=== PATIENT | female | born 1950 | race Caucasian/White ===

== ENCOUNTER 2020-01-22 08:46 | Inpatient (IN) ==
[2020-01-22 10:17] LABS: Bilirubin,Urine Negative (Negative); Blood, Urine Negative (Negative); Glucose,Urine (UA) Negative (Negative); Hyaline Casts,Urine 3 /LPF (0-3); Ketones,Urine 20 mg/dL (Negative); Mucus,Urine Many /LPF (Occasional); Nitrite,Urine Negative (Negative); Protein,Urine 30 MG/DL; RBC,Urine 2 /HPF (0-4); Squamous Epithelial Cell,Urine Occasional /HPF (0-10); Urine Appearance CLEAR (Clear); Urine Color Yellow (Yellow); Urine Urobilinogen < 2.0 EU/DL (0.2-1.0); WBC,Urine 28 /HPF (0-6)
[2020-01-22 10:56] LABS: Basophils # 0.1 10*3/uL (0.0-0.2); Basophils % 0.5 % (0.0-0.8); Eosinophils # 0.2 10*3/uL (0.0-0.87); Eosinophils % 1.7 % (0.00-10.9); Hematocrit 35.8 VOL% (35.7-47.0); Hemoglobin 12.3 GM/DL (12.0-16.0); Immature Granulocytes % 0.4 %; Immature Granulocytes Absolute 0.04 #; Lymphocytes # 1.4 10*3/uL (1.4-4.0); Lymphocytes % 14.1 % (21.3-54.2); Mean Corpuscular HGB Conc 34.4 GM/DL (32-36); Mean Corpuscular Volume 89.5 FL (87-102); Mean Platelet Volume 9.6 FL (9.6-12.0); Monocytes % 9.1 % (1.7-12.7); Neutrophils % 74.2 % (38.7-73.9); Platelet Count 269 T/CUMM (130-400); Red Cell Distribution Width 12.7 % (9.3-17.3); White Blood Count 9.8 T/CUMM (4-12)
[2020-01-22 11:20] LABS: Albumin 3.6 G/DL (3.4-5.0); Bilirubin,Total 0.7 MG/DL (0.2-1.0); Calcium 9.4 MG/DL (8.5-10.1); Osmolality,Calculated 270.4 MOS/KG (273-304)
[2020-01-22] MEDS ORDERED: cefTRIAXone 1,000 MG in SODIUM CHLORIDE 0.9% 100 ML IV STA (12:13)
[2020-01-22] MEDS ORDERED: cefTRIAXone 1,000 MG VIAL ONE (12:16)
[2020-01-22] MEDS ORDERED: ACETAMINOPHEN 325 MG TABLET PO PRN (13:26)
[2020-01-22] MEDS ORDERED: DEXTROSE 50% 25 GM/50 ML VIAL IV PRN (13:26)
[2020-01-22] MEDS ORDERED: GLUCAGON 1 MG VIAL IM PRN (13:26)
[2020-01-22] MEDS: ONDANSETRON 4 MG/2 ML VIAL IV PRN (15:30)
[2020-01-22] MEDS: SODIUM CHLORIDE 0.9% 1,000 ML IV SCH (15:47)
[2020-01-22] MEDS: MORPHINE 4 MG/1 ML VIAL IV PRN ×2 (19:09→23:21)
[2020-01-23] MEDS: MORPHINE 4 MG/1 ML VIAL IV PRN (03:24)
[2020-01-23 06:00] LABS: Basophils # 0.1 10*3/uL (0.0-0.2); Basophils % 0.5 % (0.0-0.8); Eosinophils # 0.3 10*3/uL (0.0-0.87); Eosinophils % 3.3 % (0.00-10.9); Hematocrit 33.8 VOL% (35.7-47.0); Immature Granulocytes % 0.5 %; Immature Granulocytes Absolute 0.05 #; Lymphocytes # 1.2 10*3/uL (1.4-4.0); Lymphocytes % 13.2 % (21.3-54.2); Mean Corpuscular HGB Conc 35.5 GM/DL (32-36); Mean Corpuscular Volume 89.2 FL (87-102); Mean Platelet Volume 9.7 FL (9.6-12.0); Monocytes % 8.5 % (1.7-12.7); Platelet Count 266 T/CUMM (130-400); Red Blood Count 3.79 MC/CUMM (3.8-5.5); Red Cell Distribution Width 12.7 % (9.3-17.3); White Blood Count 9.3 T/CUMM (4-12)
[2020-01-23 06:05] LABS: INR 1.1; PT Patient Result 11.4 SECS (9.8-11.9); Partial Thromboplastin Time 26.8 SECS (23.9-33.8)
[2020-01-23 06:29] LABS: Calcium 9.1 MG/DL (8.5-10.1); Osmolality,Calculated 269.2 MOS/KG (273-304)
[2020-01-23] MEDS ORDERED: MAGNESIUM SULF RIDER 4 GM in PREMIX 1 EACH IV PRN (07:19)
[2020-01-23] MEDS ORDERED: MAGNESIUM SULF RIDER 2 GM in PREMIX 1 EACH IV PRN (07:19)
[2020-01-23] MEDS: BISACODYL 5 MG TABLET PO SCH (10:43)
[2020-01-23] MEDS: SODIUM CHLORIDE 0.9% 1,000 ML IV SCH ×2 (10:59→17:29)
[2020-01-23] MEDS: LEVOTHYROXINE 100 MCG TABLET PO SCH (11:21)
[2020-01-23] MEDS: ONDANSETRON 4 MG/2 ML VIAL IV PRN (11:23)
[2020-01-23] MEDS: ENALAPRIL 20 MG TABLET PO SCH (14:06)
[2020-01-24] MEDS: LEVOTHYROXINE 100 MCG TABLET PO SCH (06:12)
[2020-01-24] MEDS: SODIUM CHLORIDE 0.9% 1,000 ML IV SCH (06:12)
[2020-01-24 06:15] LABS: Albumin 2.9 G/DL (3.4-5.0); Bilirubin,Total 0.9 MG/DL (0.2-1.0); Calcium 8.6 MG/DL (8.5-10.1); Osmolality,Calculated 266.2 MOS/KG (273-304); Total Protein 6.3 G/DL (6.4-8.3)
[2020-01-24] MEDS: ASCORBIC ACID 500 MG TABLET PO SCH (09:09)
[2020-01-24] MEDS: BISACODYL 5 MG TABLET PO SCH (09:10)
[2020-01-24] MEDS: ENALAPRIL 20 MG TABLET PO SCH (09:10)
[2020-01-24] MEDS: POTASSIUM CHLORIDE 20 MEQ TABLET PO PRN ×3 (12:28→16:51)
[2020-01-24] MEDS: ZALEPLON 5 MG CAPSULE PO PRN (22:59)
[2020-01-25] MEDS: LEVOTHYROXINE 100 MCG TABLET PO SCH (06:24)
[2020-01-25 07:01] LABS: Basophils # 0.1 10*3/uL (0.0-0.2); Basophils % 0.6 % (0.0-0.8); Eosinophils # 0.2 10*3/uL (0.0-0.87); Eosinophils % 1.7 % (0.00-10.9); Hematocrit 36.6 VOL% (35.7-47.0); Hemoglobin 13.2 GM/DL (12.0-16.0); Immature Granulocytes % 0.6 %; Immature Granulocytes Absolute 0.08 #; Lymphocytes # 1.5 10*3/uL (1.4-4.0); Lymphocytes % 11.8 % (21.3-54.2); Mean Corpuscular HGB Conc 36.1 GM/DL (32-36); Mean Corpuscular Volume 87.8 FL (87-102); Mean Platelet Volume 9.9 FL (9.6-12.0); Monocytes % 6.5 % (1.7-12.7); Neutrophils % 78.8 % (38.7-73.9); Platelet Count 324 T/CUMM (130-400); Red Blood Count 4.17 MC/CUMM (3.8-5.5); Red Cell Distribution Width 12.9 % (9.3-17.3); White Blood Count 12.4 T/CUMM (4-12)
[2020-01-25 07:32] LABS: Albumin 3.4 G/DL (3.4-5.0); Bilirubin,Total 0.6 MG/DL (0.2-1.0); Calcium 9.2 MG/DL (8.5-10.1); Total Protein 7.3 G/DL (6.4-8.3)
[2020-01-25] MEDS: POTASSIUM CHLORIDE 20 MEQ TABLET PO PRN ×3 (08:36→14:30)
[2020-01-25] MEDS: ASCORBIC ACID 500 MG TABLET PO SCH (08:36)
[2020-01-25] MEDS: BISACODYL 5 MG TABLET PO SCH (08:36)
[2020-01-25] MEDS: ENALAPRIL 20 MG TABLET PO SCH (08:37)
[2020-01-25] MEDS: hydroCHLOROthiazide 25 MG TABLET PO SCH (12:22)
[2020-01-25] MEDS: ZALEPLON 5 MG CAPSULE PO PRN (21:05)
[2020-01-26] MEDS: LEVOTHYROXINE 100 MCG TABLET PO SCH (06:41)
[2020-01-26] MEDS ORDERED: ceFAZolin 1,000 MG in SYRINGE 1 EACH IV ONE (07:01)
[2020-01-26] MEDS ORDERED: BUPIVACAINE MPF 0.25% 30 ML VIAL ONE (08:19)
[2020-01-26] MEDS ORDERED: LIDOCAINE 1%/EPI INJ 20 ML VIAL ONE (08:19)
[2020-01-26] MEDS: ENALAPRIL 20 MG TABLET PO SCH (09:39)
[2020-01-26] MEDS: BISACODYL 5 MG TABLET PO SCH (09:45)
[2020-01-26] MEDS: ASCORBIC ACID 500 MG TABLET PO SCH (09:45)
[2020-01-26] MEDS: hydroCHLOROthiazide 25 MG TABLET PO SCH (09:49)
[2020-01-26] MEDS ORDERED: SUGAMMADEX 200 MG/2 ML VIAL IV ONE (14:01)
[2020-01-26] MEDS ORDERED: ONDANSETRON 4 MG/2 ML VIAL ONE ×2 (14:38→14:42)
[2020-01-26] MEDS ORDERED: HYDROmorphone 2 MG/1 ML VIAL ONE (14:38)
[2020-01-26] MEDS: HYDROmorphone 2 MG/1 ML VIAL IV PRN ×4 (14:40→15:05)
[2020-01-26] MEDS ORDERED: propofoL 200 MG/20 ML VIAL IV ONE (14:41)
[2020-01-26] MEDS ORDERED: LIDOCAINE 2% 5 ML VIAL ONE (14:41)
[2020-01-26] MEDS ORDERED: ONDANSETRON 4 MG/2 ML VIAL IV PRN (14:41)
[2020-01-26] MEDS ORDERED: SEVOFLURANE 1 UNIT/15 MINUTE INH ONE (14:42)
[2020-01-26] MEDS ORDERED: LACTATED RINGERS 1,000 ML IV ONE (14:42)
[2020-01-26] MEDS ORDERED: ROCURONIUM 100 MG/10 ML VIAL IV ONE (14:42)
[2020-01-26] MEDS ORDERED: fentaNYL 100 MCG/2 ML VIAL ONE (14:42)
[2020-01-26] MEDS: ONDANSETRON 4 MG/2 ML VIAL IV PRN (16:56)
[2020-01-26] MEDS: MORPHINE 4 MG/1 ML VIAL IV PRN (21:15)
[2020-01-27 00:28] LABS: Bilirubin,Urine Negative (Negative); Blood, Urine Small mg/dL (Negative); Glucose,Urine (UA) Negative (Negative); Ketones,Urine 20 mg/dL (Negative); Mucus,Urine Occasional /LPF (Occasional); Nitrite,Urine Negative (Negative); Protein,Urine Negative; RBC,Urine 20 /HPF (0-4); Squamous Epithelial Cell,Urine Occasional /HPF (0-10); Urine Appearance CLEAR (Clear); Urine Color Yellow (Yellow); Urine Urobilinogen < 2.0 EU/DL (0.2-1.0); WBC,Urine 7 /HPF (0-6)
[2020-01-27] MEDS: ZALEPLON 5 MG CAPSULE PO PRN (01:22)
[2020-01-27] MEDS: MORPHINE 4 MG/1 ML VIAL IV PRN (01:22)
[2020-01-27] MEDS: LEVOTHYROXINE 100 MCG TABLET PO SCH (06:23)
[2020-01-27] MEDS: ASCORBIC ACID 500 MG TABLET PO SCH (10:16)
[2020-01-27] MEDS: ENALAPRIL 20 MG TABLET PO SCH (10:17)
[2020-01-27] MEDS: hydroCHLOROthiazide 25 MG TABLET PO SCH (10:17)
[2020-01-27] MEDS: BISACODYL 5 MG TABLET PO SCH (10:17)
[2020-01-27 20:14] VITALS: BP 148/87
== END 2020-01-27 14:32 | disposition home or self-care (01) | DRG 421 ==
LOC: N.ED 08:46 → N.EDINP 08:46 → SUATTDRO 13:26 → N.3E 17:37
PROVIDERS: ADMIT Family Medicine; ATTEND Hospitalist

== ENCOUNTER 2020-12-18 11:00 | Inpatient (IN) ==
[2020-12-18] MEDS ORDERED: SODIUM CHLORIDE 0.9% 1,000 ML IV STA (12:26)
[2020-12-18 13:08] LABS: Basophils % 0.1 % (0.0-0.8); Hematocrit 32.5 VOL% (35.7-47.0); Immature Granulocytes % 1.3 %; Immature Granulocytes Absolute 0.18 #; Lymphocytes # 0.7 10*3/uL (1.4-4.0); Lymphocytes % 4.8 % (21.3-54.2); Mean Corpuscular HGB Conc 33.8 GM/DL (32-36); Mean Corpuscular Volume 97.9 FL (87-102); Mean Platelet Volume 10.6 FL (9.6-12.0); Monocytes % 7.5 % (1.7-12.7); Neutrophils % 86.3 % (38.7-73.9); Platelet Count 285 T/CUMM (130-400); Red Blood Count 3.32 MC/CUMM (3.8-5.5); Red Cell Distribution Width 16.9 % (9.3-17.3)
[2020-12-18 13:13] LABS: Albumin 2.2 G/DL (3.4-5.0); Calcium 8.7 MG/DL (8.5-10.1); Osmolality,Calculated 268.7 MOS/KG (273-304); Potassium 4.4 MMOL/L (3.5-5.1); Total Protein 5.6 G/DL (6.4-8.2)
[2020-12-18 13:16] LABS: Bilirubin,Total 24.7 MG/DL (0.20-1.00)
[2020-12-18] MEDS ORDERED: ONDANSETRON 4 MG/2 ML VIAL IV ONE (13:30)
[2020-12-18] MEDS ORDERED: HYDROmorphone 2 MG/1 ML VIAL IV STA (13:30)
[2020-12-18] MEDS ORDERED: PIPERACILLIN/TAZOBACTAM 3,375 MG in SODIUM CHLORIDE 0.9% 100 ML IV STA (14:11)
[2020-12-18] MEDS ORDERED: BENZOCAINE/BUTAMBEN/TETRACAINE SPRAY 20 GM CAN TOP ONE (14:32)
[2020-12-18 14:41] LABS: Bacteria,Urine Many /HPF (Few); Bilirubin,Urine Moderate mg/dL (Negative); Blood, Urine Negative (Negative); Glucose,Urine (UA) Negative (Negative); Hyaline Casts,Urine 124 /LPF (0-3); Ketones,Urine Negative (Negative); Mucus,Urine Many /LPF (Occasional); Nitrite,Urine Negative (Negative); Protein,Urine Negative; RBC,Urine 6 /HPF (0-4); Urine Appearance CLOUDY (Clear); Urine Color Amber (Yellow); Urine Specific Gravity 1.018 (1.001-1.035)
[2020-12-18] MEDS ORDERED: LEVOFLOXACIN INJ 500 MG/100 ML PREMIX IV STA (14:50)
[2020-12-18] MEDS ORDERED: DEXTROSE 50% 25 GM/50 ML VIAL IV PRN (15:08)
[2020-12-18] MEDS ORDERED: GLUCAGON 1 MG VIAL IM PRN (15:08)
[2020-12-18] MEDS: DEXTROSE 5% NACL 0.9% 1,000 ML IV SCH (15:40)
[2020-12-18] MEDS: PIPERACILLIN/TAZOBACTAM 3,375 MG in SODIUM CHLORIDE 0.9% 100 ML IV SCH (19:50)
[2020-12-18] MEDS: HYDROmorphone 2 MG/1 ML VIAL IV PRN (20:18)
[2020-12-18] MEDS: AZITHROMYCIN INJ 500 MG in SODIUM CHLORIDE 0.9% 250 ML IV SCH (20:18)
[2020-12-19] MEDS: PIPERACILLIN/TAZOBACTAM 3,375 MG in SODIUM CHLORIDE 0.9% 100 ML IV SCH ×4 (00:56→22:30)
[2020-12-19 06:13] LABS: Basophils % 0.2 % (0.0-0.8); Eosinophils # 0.1 10*3/uL (0.0-0.87); Eosinophils % 0.6 % (0.00-10.9); Hematocrit 29.7 VOL% (35.7-47.0); Immature Granulocytes % 1.4 %; Immature Granulocytes Absolute 0.13 #; Lymphocytes # 0.5 10*3/uL (1.4-4.0); Lymphocytes % 5.4 % (21.3-54.2); Mean Corpuscular HGB Conc 33.7 GM/DL (32-36); Mean Corpuscular Volume 99.3 FL (87-102); Mean Platelet Volume 10.5 FL (9.6-12.0); Monocytes % 10.2 % (1.7-12.7); Neutrophils % 82.2 % (38.7-73.9); Platelet Count 211 T/CUMM (130-400); Red Blood Count 2.99 MC/CUMM (3.8-5.5); Red Cell Distribution Width 17.2 % (9.3-17.3); White Blood Count 9.4 T/CUMM (4-12)
[2020-12-19 06:36] LABS: Albumin 1.7 G/DL (3.4-5.0); Calcium 8.2 MG/DL (8.5-10.1); Potassium 4.2 MMOL/L (3.5-5.1); Total Protein 4.8 G/DL (6.4-8.2)
[2020-12-19] MEDS: LEVOTHYROXINE 100 MCG VIAL IV SCH (06:43)
[2020-12-19 06:52] LABS: Bilirubin,Total 22.2 MG/DL (0.20-1.00)
[2020-12-19] MEDS: HYDROmorphone 2 MG/1 ML VIAL IV PRN ×4 (07:10→21:25)
[2020-12-19] MEDS: DEXTROSE 5% NACL 0.9% 1,000 ML IV SCH (13:06)
[2020-12-19] MEDS: ONDANSETRON 4 MG/2 ML VIAL IV PRN (13:37)
[2020-12-19] MEDS: AZITHROMYCIN INJ 500 MG in SODIUM CHLORIDE 0.9% 250 ML IV SCH ×2 (19:42→20:20)
[2020-12-20 05:52] LABS: Basophils % 0.3 % (0.0-0.8); Eosinophils # 0.1 10*3/uL (0.0-0.87); Eosinophils % 1.1 % (0.00-10.9); Hematocrit 31.6 VOL% (35.7-47.0); Hemoglobin 10.2 GM/DL (12.0-16.0); Immature Granulocytes % 1.6 %; Immature Granulocytes Absolute 0.17 #; Lymphocytes # 0.6 10*3/uL (1.4-4.0); Lymphocytes % 6.1 % (21.3-54.2); Mean Corpuscular HGB Conc 32.3 GM/DL (32-36); Mean Corpuscular Volume 101.6 FL (87-102); Mean Platelet Volume 10.6 FL (9.6-12.0); Monocytes % 10.3 % (1.7-12.7); Neutrophils % 80.6 % (38.7-73.9); Platelet Count 206 T/CUMM (130-400); Red Blood Count 3.11 MC/CUMM (3.8-5.5); Red Cell Distribution Width 17.5 % (9.3-17.3); White Blood Count 10.6 T/CUMM (4-12)
[2020-12-20] MEDS: DEXTROSE 5% NACL 0.9% 1,000 ML IV SCH (06:20)
[2020-12-20] MEDS: LEVOTHYROXINE 100 MCG VIAL IV SCH (06:40)
[2020-12-20 06:48] LABS: Albumin 1.6 G/DL (3.4-5.0); Calcium 8.3 MG/DL (8.5-10.1); Potassium 4.5 MMOL/L (3.5-5.1); Total Protein 4.7 G/DL (6.4-8.2)
[2020-12-20 06:52] LABS: Bilirubin,Total 23.6 MG/DL (0.20-1.00)
[2020-12-20] MEDS: PIPERACILLIN/TAZOBACTAM 3,375 MG in SODIUM CHLORIDE 0.9% 100 ML IV SCH ×2 (08:54→15:23)
[2020-12-20] MEDS: HYDROmorphone 2 MG/1 ML VIAL IV PRN ×2 (11:17→20:08)
[2020-12-20] MEDS: ONDANSETRON 4 MG/2 ML VIAL IV PRN ×2 (12:12→20:08)
[2020-12-20] MEDS: AZITHROMYCIN INJ 500 MG in SODIUM CHLORIDE 0.9% 250 ML IV SCH (20:09)
[2020-12-21] MEDS: PIPERACILLIN/TAZOBACTAM 3,375 MG in SODIUM CHLORIDE 0.9% 100 ML IV SCH ×4 (00:57→23:31)
[2020-12-21] MEDS: HYDROmorphone 2 MG/1 ML VIAL IV PRN ×4 (04:16→21:02)
[2020-12-21] MEDS: ONDANSETRON 4 MG/2 ML VIAL IV PRN ×3 (04:16→20:31)
[2020-12-21] MEDS: DEXTROSE 5% NACL 0.9% 1,000 ML IV SCH ×2 (05:22)
[2020-12-21 05:43] LABS: Basophils % 0.2 % (0.0-0.8); Eosinophils # 0.1 10*3/uL (0.0-0.87); Eosinophils % 1.3 % (0.00-10.9); Hematocrit 30.6 VOL% (35.7-47.0); Hemoglobin 10.1 GM/DL (12.0-16.0); Immature Granulocytes % 1.8 %; Immature Granulocytes Absolute 0.18 #; Lymphocytes # 0.5 10*3/uL (1.4-4.0); Lymphocytes % 5.4 % (21.3-54.2); Mean Platelet Volume 10.8 FL (9.6-12.0); Monocytes % 10.3 % (1.7-12.7); Platelet Count 201 T/CUMM (130-400); Red Blood Count 3.06 MC/CUMM (3.8-5.5); Red Cell Distribution Width 17.7 % (9.3-17.3); White Blood Count 9.9 T/CUMM (4-12)
[2020-12-21 06:35] LABS: Albumin 1.6 G/DL (3.4-5.0); Calcium 8.3 MG/DL (8.5-10.1); Potassium 4.5 MMOL/L (3.5-5.1); Total Protein 4.7 G/DL (6.4-8.2)
[2020-12-21] MEDS: LEVOTHYROXINE 100 MCG VIAL IV SCH (06:35)
[2020-12-21 06:39] LABS: Bilirubin,Total 24.9 MG/DL (0.20-1.00)
[2020-12-21 08:00] LABS: INR 1.5; PT Patient Result 16.8 SECS (10.5-12.0)
[2020-12-21 11:21] LABS: Total Protein,Peritoneal Fluid 1.3 G/DL
[2020-12-21 11:47] LABS: Neutrophils,Peritoneal Fluid 25 %
[2020-12-21 11:48] LABS: RBC,Peritoneal Fluid 87 T/CUMM
[2020-12-21] MEDS: PROCHLORPERAZINE 5 MG TABLET PO SCH (20:32)
[2020-12-21] MEDS: AZITHROMYCIN INJ 500 MG in SODIUM CHLORIDE 0.9% 250 ML IV SCH (20:34)
[2020-12-22] MEDS: ONDANSETRON 4 MG/2 ML VIAL IV PRN ×3 (03:36→20:24)
[2020-12-22] MEDS: HYDROmorphone 2 MG/1 ML VIAL IV PRN ×4 (03:37→21:55)
[2020-12-22 04:34] LABS: Basophils % 0.3 % (0.0-0.8); Eosinophils # 0.1 10*3/uL (0.0-0.87); Eosinophils % 0.7 % (0.00-10.9); Hematocrit 31.6 VOL% (35.7-47.0); Hemoglobin 10.4 GM/DL (12.0-16.0); Immature Granulocytes % 1.7 %; Immature Granulocytes Absolute 0.19 #; Lymphocytes # 0.7 10*3/uL (1.4-4.0); Lymphocytes % 5.8 % (21.3-54.2); Mean Corpuscular HGB Conc 32.9 GM/DL (32-36); Mean Corpuscular Volume 98.8 FL (87-102); Mean Platelet Volume 10.5 FL (9.6-12.0); Monocytes % 9.1 % (1.7-12.7); Neutrophils % 82.4 % (38.7-73.9); Platelet Count 216 T/CUMM (130-400); Red Cell Distribution Width 17.6 % (9.3-17.3); White Blood Count 11.4 T/CUMM (4-12)
[2020-12-22 05:03] LABS: Albumin 1.5 G/DL (3.4-5.0); Calcium 8.2 MG/DL (8.5-10.1); Osmolality,Calculated 277.1 MOS/KG (273-304); Potassium 4.2 MMOL/L (3.5-5.1); Total Protein 4.5 G/DL (6.4-8.2)
[2020-12-22 05:09] LABS: Bilirubin,Total 24.7 MG/DL (0.20-1.00)
[2020-12-22] MEDS: LEVOTHYROXINE 100 MCG VIAL IV SCH (06:27)
[2020-12-22] MEDS: DEXTROSE 5% NACL 0.9% 1,000 ML IV SCH (09:52)
[2020-12-22] MEDS: PIPERACILLIN/TAZOBACTAM 3,375 MG in SODIUM CHLORIDE 0.9% 100 ML IV SCH ×2 (09:59→17:39)
[2020-12-22] MEDS: PROCHLORPERAZINE 5 MG TABLET PO SCH ×3 (10:04→21:22)
[2020-12-22] MEDS ORDERED: SCOPOLAMINE 1.5 MG PATCH TRANSDERM SCH (10:30)
[2020-12-22] MEDS: AZITHROMYCIN INJ 500 MG in SODIUM CHLORIDE 0.9% 250 ML IV SCH (21:22)
[2020-12-22] MEDS ORDERED: METOCLOPRAMIDE 10 MG/2 ML VIAL IV PRN (22:06)
[2020-12-22] MEDS ORDERED: PROMETHAZINE INJ 12.5 MG in SODIUM CHLORIDE 0.9% 50 ML IV PRN (22:07)
[2020-12-23] MEDS: PIPERACILLIN/TAZOBACTAM 3,375 MG in SODIUM CHLORIDE 0.9% 100 ML IV SCH ×2 (00:25→10:27)
[2020-12-23 05:00] LABS: Basophils % 0.2 % (0.0-0.8); Eosinophils % 0.3 % (0.00-10.9); Hematocrit 30.7 VOL% (35.7-47.0); Hemoglobin 10.2 GM/DL (12.0-16.0); Immature Granulocytes % 1.9 %; Immature Granulocytes Absolute 0.22 #; Lymphocytes # 0.6 10*3/uL (1.4-4.0); Lymphocytes % 5.2 % (21.3-54.2); Mean Corpuscular HGB Conc 33.2 GM/DL (32-36); Mean Platelet Volume 11.1 FL (9.6-12.0); Monocytes % 8.5 % (1.7-12.7); Neutrophils % 83.9 % (38.7-73.9); Platelet Count 227 T/CUMM (130-400); White Blood Count 11.7 T/CUMM (4-12)
[2020-12-23 05:50] LABS: Albumin 1.4 G/DL (3.4-5.0); Calcium 8.4 MG/DL (8.5-10.1); Osmolality,Calculated 277.2 MOS/KG (273-304); Potassium 4.5 MMOL/L (3.5-5.1); Total Protein 4.4 G/DL (6.4-8.2)
[2020-12-23 06:08] LABS: Bilirubin,Total 23.8 MG/DL (0.20-1.00)
[2020-12-23] MEDS: LEVOTHYROXINE 100 MCG VIAL IV SCH (06:33)
[2020-12-23] MEDS: HYDROmorphone 2 MG/1 ML VIAL IV PRN (07:29)
[2020-12-23] MEDS: ONDANSETRON 4 MG/2 ML VIAL IV PRN (07:37)
[2020-12-23] MEDS: PROCHLORPERAZINE 5 MG TABLET PO SCH (10:26)
[2020-12-23] MEDS ORDERED: ONDANSETRON ODT 4 MG TABLET PO PRN (12:37)
[2020-12-23] MEDS ORDERED: oxyCODONE IR 5 MG TABLET PO PRN (12:40)
[2020-12-23] MEDS ORDERED: PROCHLORPERAZINE 5 MG TABLET PO PRN (12:44)
[2020-12-23 15:52] VITALS: BP 94/60
[2020-12-23] MEDS ORDERED: oxyCODONE ER 10 MG TABLET PO SCH (21:00)
== END 2020-12-23 16:30 | disposition hospice, home (50) | DRG 435 ==
LOC: N.ED 11:00 → N.EDINP 15:07 → N.4E 15:28
PROVIDERS: ADMIT Hospitalist; ATTEND Hospitalist